=== PATIENT | male | born 1980 | race Hispanic/Latino ===

== ENCOUNTER 2020-10-28 17:55 | Inpatient (IN) | payer SELFPAY ==
[2020-10-28] MEDS ORDERED: Boostrix 0.5 ML (Tdap) VIAL ONE ×3 (18:41→21:02)
[2020-10-28] MEDS ORDERED: Bupivacaine 0.5% 10 ML VIAL ONE (19:47)
[2020-10-28] MEDS ORDERED: Lidocaine 1% (PF) 30 ML VIAL ONE (19:47)
[2020-10-28 20:31] LABS: #Eosinphils 0.1 thou/uL (0.0-0.7); #Lymphocytes 1.1 thou/uL (1.20-3.40); #Monocytes 0.6 thou/uL (0.11-0.59); #Neutrophils 4.3 thou/uL (1.40-6.50); %Basophils 0.6 % (0.0-1.0); %Eosinophils 1.8 % (0.0-10.0); %Lymphocytes 17.7 % (21.0-51.0); %Monocytes 9.8 % (0.0-10.0); %Neutrophils 70.1 % (42.0-75.0); Hemoglobin 14.4 g/dL (14.0-18.0); Mean Corpuscular HGB CONC 33.5 g/dL (32.0-36.0); Mean Corpuscular Hemoglobin 31.8 pg (27.0-31.0); Mean Platelet Volume 6.8 fL (7.4-10.4); Platelet Count 283 thou/uL (130-400); RBC Distribution Width 12.3 % (11.5-14.5); Red Blood Cell (RBC) Count 4.53 mill/uL (4.70-6.10); White Blood Cell (WBC) Count 6.2 thou/uL (4.8-10.8)
[2020-10-28] MEDS ORDERED: Betamet Acet/Betamet Na Ph 30 MG/5 ML VIAL ONE (20:42)
[2020-10-28] MEDS ORDERED: Bupivacaine 0.25% HCL 30 ML VIAL ONE (20:42)
[2020-10-28] MEDS ORDERED: Sodium Chloride 0.9% 30 ML ONE (20:43)
[2020-10-28] MEDS ORDERED: Fentanyl 100 MCG/2 ML VIAL ONE (20:43)
[2020-10-28] MEDS ORDERED: Bacitracin Zinc Ointment 30 gm TUBE ONE (20:43)
[2020-10-28] MEDS ORDERED: Thrombin 5000 UNITS/5 ML VIAL ONE (20:43)
[2020-10-28] MEDS ORDERED: Gentamicin 80 MG/2 ML VIAL ONE (20:59)
[2020-10-28 21:36] LABS: SARS-CoV-2 NAA Rapid Test Not Detected (NotDetected)
[2020-10-28] MEDS ORDERED: Milk Of Magnesia 30 ML UDCUP PO PRN (21:39)
[2020-10-28] MEDS ORDERED: traMADol HCl 50 MG TAB PO PRN (21:39)
[2020-10-28] MEDS ORDERED: Bisacodyl 10 MG SUPP PR PRN (21:39)
[2020-10-28] MEDS ORDERED: Fentanyl 100 MCG/2 ML VIAL SLOW IVP PRN (21:39)
[2020-10-28] MEDS ORDERED: HYDROcodone/Acetaminophen 5/325 mg Tablet PO PRN (21:39)
[2020-10-28] MEDS ORDERED: Ondansetron PF 4 MG/2 ML Vial SLOW IVP PRN (21:39)
[2020-10-28] MEDS ORDERED: Morphine 4 MG/ML VIAL SLOW IVP PRN (21:39)
[2020-10-28] MEDS ORDERED: Promethazine HCl 25 MG/ML VIAL IM PRN (21:39)
[2020-10-28] MEDS ORDERED: Acetaminophen 325 MG TAB PO PRN (21:39)
[2020-10-28] MEDS ORDERED: Meperidine HCl/PF 25 MG/ML VIAL IM PRN (21:42)
[2020-10-28] MEDS ORDERED: Ketorolac Tromethamine 30 MG/ML VIAL IVP PRN (21:42)
[2020-10-28] MEDS ORDERED: TETANUS AND DIPHTHERIA TOX/PF 0.5 ML DISP.SYRIN IM SCH (21:45)
[2020-10-28] MEDS ORDERED: Communication Order-Pharmacy FS SCH (21:45)
[2020-10-28] MEDS ORDERED: PROPOFOL 200 MG/20 ML VIAL ONE (21:47)
[2020-10-28] MEDS ORDERED: PHENYLEPHRINE-NS 100 MCG/ML 10 ML SYRINGE ONE (21:47)
[2020-10-28] MEDS ORDERED: Rocuronium Bromide 10 MG/ML (10ML VIAL) ONE (21:47)
[2020-10-28] MEDS ORDERED: Ketorolac Tromethamine 30 MG/ML VIAL ONE (21:47)
[2020-10-28] MEDS ORDERED: Ondansetron PF 4 MG/2 ML Vial ONE (21:47)
[2020-10-28] MEDS ORDERED: Lidocaine 1% PF 5 ML VIAL ONE (21:47)
[2020-10-28] MEDS: Sodium Chloride 0.9% 100 ML IV SCH (23:55)
[2020-10-29] MEDS: Sodium Chloride 0.9% 100 ML IV SCH ×3 (02:37→20:30)
[2020-10-29] MEDS ORDERED: Fentanyl 100 MCG/2 ML VIAL ONE (08:13)
[2020-10-29] MEDS ORDERED: Aspirin 81 mg Enteric Coated Tablet ONE (09:16)
[2020-10-29] MEDS ORDERED: Ketorolac Tromethamine 30 MG/ML VIAL ONE (14:42)
[2020-10-29] MEDS: Sodium Chloride 0.9% 1,000 ML IV SCH ×3 (19:23→19:25)
[2020-10-29] MEDS: Aspirin 81 mg Enteric Coated Tablet PO SCH ×2 (19:24→21:11)
[2020-10-29] MEDS: Vancomycin 1 GM in Premix Bag 1 BAG IVPB SCH (21:11)
[2020-10-30 06:42] VITALS: BMI 26.8
[2020-10-30] MEDS: Aspirin 81 mg Enteric Coated Tablet PO SCH (07:45)
[2020-10-30] MEDS: Sodium Chloride 0.9% 1,000 ML IV SCH (07:45)
[2020-10-30] MEDS: Vancomycin 1 GM in Premix Bag 1 BAG IVPB SCH (07:46)
[2020-10-30 18:59] VITALS: BP 143/95; TEMP 98.7
== END 2020-10-30 18:07 | disposition home or self-care (01) | DRG 514 ==
LOC: ERS 17:55 → SDC/OP 22:01 → PACU-TCU 23:00 → T4-B 10-29 18:38
PROVIDERS: ADMIT Orthopaedic Surgery Hand Surgery; ATTEND Orthopaedic Surgery Hand Surgery
PROC: 0PST04Z Reposition Right Finger Phalanx with Internal Fixation Device, Open Approach (ICD-10-PCS; principal; 2020-10-28)
PROC: 0HQQXZZ Repair Finger Nail, External Approach (ICD-10-PCS; 2020-10-28)
PROC: 0HBQXZZ Excision of Finger Nail, External Approach (ICD-10-PCS; 2020-10-28)
PROC: 2W3JX1Z Immobilization of Right Finger using Splint (ICD-10-PCS; 2020-10-28)
DX: S62.521B Displaced fracture of distal phalanx of right thumb, initial encounter for open fracture (principal); S61.121A Laceration with foreign body of right thumb with damage to nail, initial encounter; Z20.822 Contact with and (suspected) exposure to COVID-19; W26.8XXA Contact with other sharp object(s), not elsewhere classified, initial encounter
CPT/HCPCS: 36415; 76000; 85025; 90471; 90715; 96365; 96375; J0690; J0702; J1580; J1885; J2001; J2270; J2405; J2704; J3010; J3370; J3490; S0020; U0002